=== PATIENT | female | born 1945 | race Caucasian/White ===

== ENCOUNTER 2017-01-01 19:13 | Inpatient (IN) | payer MEDICARE, BC ==
[~2017-01-01] VITALS: Ht 152.4 cm; Wt 55.8 kg
--- NOTE | ~2017-01-01 | DS ---
PATIENT'S NAME: ARYAN AYALA [facility] AGE: 71 Y [address] ROOM: G6322 [place], [place] [address] LOCATION: GPCU ADMIT DATE: 01/01/2017 Discharge Summary DISCHARGE DATE: 01/04/2017 FAMILY PHYSICIAN: Jean Guerrero MD ATTENDING PHYSICIAN: Edyta Lipscomb FINAL DIAGNOSES: 1. Ydufn-ns-mtftzop systolic congestive heart failure. 2. Pleural effusion. 3. Baifg-hx-sfnqzwk kidney disease. 4. Hypertension. 5. Migraine headache. 6. Ejection fraction of 48%. HOSPITAL COURSE: This is a 71-year-old female who was transferred from [place], [place], with a CHF exacerbation, fluid overload, as well as a pleural effusion. Further evaluation of imaging from [place] showed that her pleural effusion was not to the level of intensity that it needed a thoracentesis. So, she was transferred to [facility] for higher level of care and for attempted and improved diuresis of her fluid overload. Please see history and physical dictated by myself. Upon arrival to [facility], the patient was given IV Lasix and underwent an echocardiogram. After her first round of diuresis, her shortness of breath was much improved. On 01/02/2017, she did develop a migraine headache which is within her normal history. She was treated with [place] and Zofran for some associated nausea. We increased her beta florecita and added Aldactone. On 01/03/2017, the patient experienced an acute kidney injury on top of her chronic kidney disease, so her diuretics were held for that day. She was also started on Imitrex to assist with her migraine headache which had yet to completely resolve but had improved. On 01/04/2017, the patient underwent stress testing which showed an ejection fraction of 48%. It also revealed a mild reversible deficit in the mid apical inferior wall as well as a small sized fixed deficit within the distal anterior wall which was likely soft tissue attenuation. Renal evaluation showed an improved renal function, and she already had a planned outpatient appointment in [address] Noam Chowdary, her regular drycleaner. The patient voiced request to go home and states she was feeling much better and she was found to be in stable condition to be discharged. Due to her recent renal dysfunction as well as her recent fluid overload, plans were made for her to keep her appointment with Dr. Chowdary as well as draw a BMP and a proBNP to further evaluate her laboratory improvement to correlate her improvement in physical symptoms. DIAGNOSTICS: Cardiac enzyme evaluation on admission showed a CPK of 52, CK-MB of 1.5, and a troponin I of less than 0.04. She did have a proBNP of 15,900. Lipid evaluation upon admission showed a total cholesterol of 163, PATIENT'S NAME: ARYAN AYALA [facility] AGE: 71 Y [address] ROOM: [address] [address] LOCATION: GPCU ADMIT DATE: 01/01/2017 Discharge Summary DISCHARGE DATE: 01/04/2017 FAMILY PHYSICIAN: Jean Guerrero MD ATTENDING PHYSICIAN: Edyta Lipscomb triglycerides 262, HDL of 38, and LDL 73. She had a TSH of 4.03. Renal evaluation throughout her stay showed an admission renal function of a BUN, creatinine, and GFR of 22, 1.0, and 54 respectively. On 01/03/2017, her BUN, creatinine, and GFR were 29, 1.8, and 28 respectively. Upon discharge, renal function showed a BUN, creatinine, and GFR of 33, 1.2, and 44 respectively. The patient had an echocardiogram on 01/02/2017, which showed a grade 1 diastolic dysfunction as well as mild concentric left ventricular hypertrophy. She had mild mitral regurgitation as well as mild tricuspid regurgitation and mild pulmonary hypertension with an RVSP of 44 mmHg. She also underwent cardiac stress testing on 01/04/2017. Full report is available for review for details. DISCHARGE ORDERS: The patient is discharged to home with a cardiac diet of low fat, low salt, and low cholesterol. She has no activity restrictions. She is to keep her followup appointment with her regular drycleaner Dr. Noam Chowdary in two days in [place]. Once again, she is to have a BMP and a proBNP drawn before that appointment for continued evaluation of her renal and fluid status. She is then to follow up with her primary care provider in 1 week. She is to be given congestive heart failure teaching instructions including monitoring of her oral intake as well as importance of daily weights and reporting any fluctuations to her drycleaner. DISCHARGE MEDICATIONS: 1. Coreg 25 mg p.o. twice daily. 2. Keflex 500 mg p.o. 4 times daily. 3. Pepcid 40 mg p.o. daily at bedtime. 4. Folic acid 1 mg p.o. daily. 5. Levothyroxine 25 mcg p.o. daily. 6. Lisinopril 20 mg p.o. daily. 7. Magnesium oxide 500 mg p.o. daily. 8. Methotrexate 2.5 mg p.o. once a week on Wednesday evenings. 9. Methotrexate 5 mg p.o. once a week on Tuesdays. 10. Singulair 10 mg p.o. daily. 11. Prednisone 20 mg p.o. every 48 hours. 12. Tylenol 650 mg p.o. every 4 hours as needed for pain. 13. Imitrex 50 mg p.o. as needed for headache with a repeat dose in 2 hours if headache not improved. She is not to take more than 200 mg in a 24- hour period. 14. Compazine 10 mg p.o. every 6 to 8 hours as needed for nausea associated with her migraine headache. 15. Lasix 20 mg p.o. daily. DISPOSITION: The patient is discharged to home in stable condition. She is given discharge teaching including her new medications and prescriptions as PATIENT'S NAME: ARYAN AYALA [facility] AGE: 71 Y [address] ROOM: [place] [address] LOCATION: [facility] ADMIT DATE: 01/01/2017 Discharge Summary DISCHARGE DATE: 01/04/2017 FAMILY PHYSICIAN: Jean Guerrero MD ATTENDING PHYSICIAN: Edyta Lipscomb well as activity and diet restrictions and followup appointments. YUDITH TOMAS APRN FOR MD EFRA LENNON/zohaib /[id number] d: 01/08/17 0408 t: 03/10/17 1100, DISCHARGE SUMMARY
--- NOTE | ~2017-01-01 | ESTC ---
Cardiac Perfusion Imaging Demographics Patient Name JAMIE Mohamud Gender Female Patient Number [id number] Race Visit Number [id number] [place] [id number] Room Number G6322 Accession Number [id number] Height 60 inches Date of 1945 Weight 122 pounds Mark Willett Date of study 01/04/2017 Physician Supervising /JUAN RAMON REED Technologist Jeanette Duran Ordering Physician Ruel Ford MD production technician Stress ECG Reading Roscoe Vines APRN Nurse Zane Cedillo Physician flat spring assembler Procedure Type: Nuclear Stress Test:Exercise, Cardiolite Stress Test Procedure Start time: 01/04/2017 07:25 Indications: Heart Failure. Risk Factors The patient risk factors include:treated hypertension, family history of premature CAD and prior heart failure . Conclusions Summary Stress SPECT images reveal a small area of mild decreased isotope uptake involving the distal anterior wall of the left ventricle. There is also a medium sized mild to moderate intensity inferior wall defect. Rest SPECT images reveal a mildly reversible defect in the mid to apical inferior wall and small sized mostly fixed defect in the distal anterior wall. Gated SPECT imaging reveals mild global hypokinesis. The left ventricular ejection fraction was calculated to be 48 % . Impression ECG portion of the stress test is clinically negative for ischemia by diagnostic criteria. Myocardial perfusion imaging is abnormal. images reveal a mildly reversible defect in the mid to apical inferior wall suggestive of mild ischemia and small size mostly fixed fixed defect in the distal anterior wall likely due to attenuation artifact. Gated wall motion is abnormal with LVEF 48%. There are no previous studies for comparison. . Stress Protocols Resting ECG Normal sinus rhythm. Pre-stress physical exam: Patient assessed by Robert CARR prior to testing. Peak HR:125 bpm HR response: Appropriate Predicted HR: 147 bpm BP response: Appropriate % of predicted HR: 85 Reason for termination:Target heart rate ECG Findings No ECG changes suggestive of ischemia. Arrhythmias No rhythm abnormality. Symptoms Shortness of breath. Leg Fatigue Complications Procedure complication: None. Stress Interpretation Walked 4.5 minutes through 2 stages of malcolm protocol. Appropriate hemodynamic response to exercise. No significant ST-T wave changes with exercise. EKG portion is negative for ischemia by diagnostic criteria. The Villalba Treadmill score was 4.5 .This corresponds to a moderate risk stress test. Will correlate with nuclear images. Imaging Results Summed scores - Summed stress score: 6 - Summed rest score: 9 - Summed difference score: -3 Stress ejection Ejection fraction:49 % EDV :96 ml ESV :49 ml Stroke volume :47 ml LV mass :134 gr Imaging Protocols Rest Stress Isotope:Tc99m Sestamibi IV Isotope: Tc99m Sestamibi IV Isotope dose:10 mCi Isotope dose:30.7 mCi Date:01/04/2017 07:00 Date:01/04/2017 08:38 Technique: SPECT Technique: Gated Supine SPECT Supine IV remains in place after procedure. Scan Time:30 minutes post injection Scan Time:15-30 minutes post injection Procedure Medications - Regadenoson (Lexiscan) 0.4 mg IV over 10-15 sec. I.V. 0.4 mg. Medical History Admission Data Admission date: 01/01/2017 Admission Time: 20:23 Hospital Status: Inpatient. Signatures dtt: JUSTINA LEYVA dtd: 01/04/17 0725 Physician Self Edit
--- NOTE | ~2017-01-01 | HP ---
PATIENT'S NAME: ARYAN AYALA [facility] AGE: 71 Y [address] ROOM: [place] [address] LOCATION: [facility] ADMIT DATE: 01/01/2017 History & Physical DISCHARGE DATE: FAMILY PHYSICIAN: PHYSICIAN, UNKNOWN ATTENDING PHYSICIAN: Edyta Lipscomb DATE OF SERVICE: HISTORY OF PRESENT ILLNESS: This is a 71-year-old female with a history of congestive heart failure, who regularly follows with Dr. Noam Chowdary. She presented to the [place] [facility] with complaints of shortness of breath, dyspnea on exertion, and her exam found that she had a pleural effusion that was not responding to metolazone. She also complained of migraine-type headache which was causing nausea. Due to the above diagnostics as well as an elevated proBNP of 15,913, Dr. Lipscomb was notified and plan was made to transfer the patient to [facility] for further evaluation and treatment. At the time of this evaluation, she is sitting at the edge of her bed, continuing to complain of nausea and of migraine-type headache. She has had no relief from her headache with Tylenol at this point and has not had much oral intake due to her nausea. She denies chest pain, palpitations, presyncope, or syncope. She also denies diarrhea or changes in muscle strength. PAST MEDICAL HISTORY: 1. Hypertension. 2. Congestive heart failure, chronic. 3. Migraines. 4. History of breast cancer in 2006. 5. History of melanoma in 2007. PAST SURGICAL HISTORY: 1. Right mastectomy. 2. Hysterectomy. 3. Left patellar fracture repair. 4. Melanoma excision. 5. Removal of bone spurs from her foot. FAMILY HISTORY: The patient's father due to a myocardial infarction at the age of 67. He also had a history of COPD. Her mother has a history of diabetes mellitus as well as heart problems. She has one sister who had a myocardial infarction at the age of 65 as well as a history of breast cancer. She has one brother with a history of leukemia. PATIENT'S NAME: ARYAN AYALA [facility] AGE: 71 Y [address] ROOM: [place] [address] [facility] ADMIT DATE: 01/01/2017 History & Physical DISCHARGE DATE: FAMILY PHYSICIAN: PHYSICIAN, UNKNOWN ATTENDING PHYSICIAN: Edyta Lipscomb SOCIAL HISTORY: The patient denies ever using tobacco. She does admit to alcohol use on 1 day a week and on those days, she will have 1 drink. She denies illicit drug use. HOME MEDICATIONS: 1. Keflex 500 mg p.o. 4 times a day. 2. Pepcid 40 mg p.o. daily in the evening. 3. Folic acid 1 mg p.o. daily. 4. Indocin 50 mg p.o. 3 times daily. 5. Levothyroxine 25 mcg p.o. daily. 6. Lisinopril 20 mg p.o. daily. 7. Magnesium oxide 500 mg p.o. daily. 8. Methotrexate 5 mg p.o. on Wednesday mornings. 9. Methotrexate 2.5 mg p.o. once a week on Wednesday evenings. 10. Zaroxolyn 5 mg p.o. daily. 11. Toprol-XL 25 mg p.o. daily. 12. Singulair 10 mg p.o. daily. 13. Prednisone 20 mg p.o. every other day. MEDICATION ALLERGIES: Sulfa. REVIEW OF SYSTEMS: Pertinent positive review of systems as listed in the HPI. All other review of systems evaluated and negative. LABORATORY DATA AND IMAGING STUDIES: Diagnostics: CMS evaluation shows a sodium of 139, potassium 3.7, BUN of 22, creatinine 1.0, and glucose of 109. Cardiac enzymes show a CPK of 54, CK-MB of 1.5, and troponin I of less than 0.04. CBC evaluation shows a white blood cell count of 6.2, hemoglobin of 10.9, hematocrit of 35.1, and platelets of 397,000. PHYSICAL EXAMINATION: VITAL SIGNS: Temperature 98.3, pulse 71, respirations 17, blood pressure 140/66, and O2 saturation 94% on room air. The patient weighs 55.5 kg. SKIN: [place], warm, and dry. EYES: Sclerae clear. No xanthelasmas. ENT: Oral mucosa is pink and moist. No jugular venous distention or carotid bruits. CHEST: Respirations are even and unlabored. Lung sounds are clear to auscultation to bilateral upper lobes. They are diminished to bilateral lower lobes. HEART: Regular rate and rhythm. Normal S1 and S2. There is a presence of an S4 as well as a 2/6 systolic murmur. PATIENT'S NAME: ARYAN AYALA [facility] AGE: 71 Y [address] ROOM: [place] [address] LOCATION: GPCU ADMIT DATE: 01/01/2017 History & Physical DISCHARGE DATE: FAMILY PHYSICIAN: PHYSICIAN, UNKNOWN ATTENDING PHYSICIAN: Edyta Lipscomb ABDOMEN: Soft and nontender. MUSCULOSKELETAL: Gait is normal. EXTREMITIES: Peripheral pulses palpable. No clubbing or cyanosis noted. Does have 1+ lower extremity edema present. PSYCHIATRIC: Alert and oriented. Mood and affect are appropriate. IMPRESSION AND PLAN: Per Dr. Lipscomb: 1. Acute on chronic congestive heart failure with fluid overload and pleural effusion. She is diuresing well with IV Lasix and her shortness of breath has improved since her admission. Echocardiogram is currently pending and we will evaluate that echocardiogram for full evaluation of ejection fraction as well as looking for wall-motion or valvular abnormalities. 2. Migraine-type headache. We will try a stronger pain medication with [place] and try and treat her nausea associated with it with Zofran. 3. Hypertension. We will continue her home medications. 4. Nausea. Once again, we will try Zofran to fully manage her symptoms. 5. Chronic kidney disease. We will once again fully evaluate her echocardiogram and if her ejection fraction is low, we will plan to proceed with a heart catheterization to fully evaluate her coronary anatomy; and if her ejection fraction is within normal limits, we will plan to proceed with a Lexiscan stress test and then adjust her medications appropriately. Her pleural effusions are not large enough of a concern that a thoracentesis is necessary at this point, but we will continue to monitor, evaluate, and treat as appropriate. Thank you for allowing [facility] to interact in the care of this patient. YUDITH TOMAS APRN FOR MD EFRA LENNON/zohaib /[id number] D: 451 T: 431 HISTORY & PHYSICAL
--- NOTE | ~2017-01-01 | ECHO ---
Transthoracic Echocardiography Report (TTE) Demographics Patient Name ARYAN AYALA Date of Study 01/02/2017 Patient Number [id number] Visit Number [id number] Date of 1945 Room Number G6322 Gender Female Number Age 71 year(s) Referring Ruel Trinh Data Processing Operator Sohail Christensen RVT, Physician Liliana ROBIN RDCS Physician Interpreting Efstratiou Photography Coordinator Physician Gayathri Ford MD Supervising Ordering Efstratiou MD/MLP Physician Gayathri Ford MD Nurse Stress Secretary Administrative Assistant Conclusions Contractility Score Summary At rest the following contractility abnormalities were noted: Hypokinesis of the Mid fely-lateral, the Mid anterior, the Mid fely-septal, the Mid infero-septal, the Mid inferior, the Mid infero-lateral, the Apical inferior, the Apical septal, the Basal infero-septal, the Apical lateral, the Apical anterior, the Basal anterior, the Basal inferior, the Basal fely-lateral and the Apical cap segments. Contractility of all other segments appeared normal. Summary The estimated left ventricular ejection fraction is 30%. Mild concentric left ventricular hypertrophy. Diastolic assessment reveals Grade I diastolic dysfunction. Mild mitral regurgitation by color Doppler with multiple jets. Mild tricuspid regurgitation by color Doppler. There is mild pulmonary hypertension. The pulmonary pressure (RVSP) is 44 mmHg. Procedure Type of Study TTE procedure:2D Echocardiogram. Procedure Date Date: 01/02/2017 Start: 02:00 PM Study Location: Inpatient Portable Technical Quality: Good visualization Indications:CHF. Appropriate Use Criteria: 8 Patient Status: Routine Rhythm: NSR HR: 81 bpm BP: 160/77 mmHg Allergies - No known allergies. M-Mode/2D Measurements LV Diastolic Dimension: 4.68 cm LV Systolic Dimension: 3.33 cm LV Septum Diastolic: 1.23 cm LV PW Diastolic: 1.07 cm AO Root Dimension: 2.3 cm Cardiac Output: 3.28 l/min AV Cusp Separation: 1.9 cm RV Diastolic Dimension: 2.35 cm LA volume: 35 ml LVOT: 2 cm RV Base: 2.47 cm LVOT VTI: 12.9 cm RV Mid: 3.03 cm LV Stroke volume: 40.51 ml TAPSE: 2.87 cm TDI-S': 11.8 cm/s Doppler Measurements AV Peak Velocity: 1.26 m/s MV Peak E-Wave: 0.59 m/s AV Peak Gradient: 6.35 mmHg MV Peak A-Wave: 1.09 m/s AV Mean Gradient: 4 mmHg MV E/A Ratio: 0.54 LVOT Peak Velocity: 0.57 m/s MV P1/2t: 63 msec TR Gradient:38.69 mmHg PV Peak Velocity: 0.77 m/s Estimated RAP:5 mmHg PV Peak Gradient: 2.37 mmHg Estimated RVSP: 44 mmHg Estimated PASP: 43.69 mmHg E' Septal Velocity: 0.04 m/s A' Septal Velocity: 0.1 m/s E' Lateral Velocity: 0.04 m/s A' Lateral Velocity: 0.13 m/s Findings Left Ventricle Mild concentric left ventricular hypertrophy. Diastolic assessment reveals Grade I diastolic dysfunction. Right Ventricle Normal right ventricle structure and function. Left Atrium The left atrium is mildly to moderately dilated. There is no evidence of patent foramen ovale or atrial septal defect by color Doppler. Right Atrium Normal right atrial size. IVC measures .94 cm with inspiratory collapse. Mitral Valve Mild mitral regurgitation by color Doppler with multiple jets. Aortic Valve Normal aortic valve structure and function. There is trivial aortic regurgitation by color Doppler. Tricuspid Valve Mild tricuspid regurgitation by color Doppler. There is mild pulmonary hypertension. The pulmonary pressure (RVSP) is 44 mmHg. Pulmonic Valve Normal pulmonic valve structure and function. Pericardial Effusion No evidence of pericardial effusion. Miscellaneous Visualized portions of the aortic root and ascending aorta appear normal in size. Pleural Effusion Pleural effusion present. Contractility Score LV regional wall motion:(0-Non visualized 1-Normal 2-Hypokinesis 3-Akinesis 4-Dyskinesis 5-Aneurysm) Signature dtt: Edyta Lipscomb dtd: 01/02/17 1400 Physician Self Edit
[2017-01-01] MEDS ORDERED: DELTASONE5 MG PO (21:00)
[2017-01-01] MEDS ORDERED: FOLIC ACID1 MG PO (21:01)
[2017-01-01] MEDS ORDERED: METHOTREXATE2.5 MG PO ×2 (21:03→21:04)
[2017-01-01] MEDS ORDERED: LEVOTHROID (SY25 MCG PO (21:05)
[2017-01-01] MEDS ORDERED: SINGULAIR10 MG PO (21:05)
[2017-01-01] MEDS ORDERED: MAGNESIUM500 MG PO (21:06)
[2017-01-01] MEDS ORDERED: PRINIVIL (ZESTRI5 MG PO (21:07)
[2017-01-01] MEDS ORDERED: PEPCID40 MG PO (21:07)
[2017-01-01] MEDS ORDERED: PRINIVIL (ZESTR20 MG PO (21:08)
[2017-01-01] MEDS ORDERED: ZAROXOLYN5 MG PO (21:09)
[2017-01-01] MEDS ORDERED: TOPROL XL 5050 MG PO (21:09)
[2017-01-01] MEDS ORDERED: KEFLEX500 MG PO (21:10)
[2017-01-01] MEDS ORDERED: INDOCIN50 MG PO (21:10)
[2017-01-02 05:45] LABS: BASOPHIL # 0.1 K/uL (0.0-0.2); BASOPHIL % 0.8 %; EOSINOPHIL # 0.2 K/uL (0.0-0.5); EOSINOPHIL % 2.9 %; HEMATOCRIT 35.1 % (33.0-46.0); HEMOGLOBIN 10.9 g/dL (10.0-15.0); IMMATURE GRANULOCYTE % 0.5 %; LYMPHOCYTE % 16.7 %; MCH 25.5 pg (27.0-34.0); MCHC 31.1 gm/dL (32.0-36.5); MCV 82.2 fl (83.0-98.0); MONOCYTE # 0.6 K/uL (0.0-1.0); MPV 9.2 fl (9.4-12.4); NEUTROPHIL # (ANC) 4.4 K/uL (1.8-7.8); NEUTROPHIL % 70.1 %; NRBC % 0 /100WBC (0-0.00); PLATELET COUNT 397 K/uL (150-450); RBC 4.27 M/uL (3.50-5.50); RDW-CV 14.4 % (11.9-14.6); WBC 6.2 K/uL (4.0-11.0)
[2017-01-02 06:10] LABS: ALBUMIN 2.6 gm/dL (3.5-5.0); ALK PHOS 75 IU/L (33-138); ALT 15 IU/L (12-78); ANION GAP 12.7 (10.0-19.0); AST 14 IU/L (10-40); BLOOD UREA NITROGEN 22 mg/dL (6-24); CALCIUM 7.8 mg/dL (8.5-10.5); CHLORIDE 104 mMol/L (96-110); CO2 26 mMol/L (22-32); CPK 52 IU/L (21-215); ESTIMATED GFR (MDRD EQUATION) 54; POTASSIUM 3.7 mMol/L (3.7-5.1); SODIUM 139 mMol/L (135-145); TOTAL BILIRUBIN 0.4 mg/dL (0.0-1.5); TOTAL PROTEIN 5.2 g/dL (6.0-8.4)
--- NOTE | 2017-01-02 06:57 | NUR ---
Significant Event: A/0X3. RESTED IN BED ALL OF SHIFT. TURNS SELF. AFERBRILE. PATIENT WAS HAVING SOME HIGH BLOOD PRESSURE THROUGHOUT THE SHIFT. SBP 160-180'S. LASIX IVP GIVEN AND STARTED COREG BID. OTHER VITALS STABLE ON RA. IV TO R) AC SL. TYLENOL GIVEN X1 FOR HEADACHE. PATIENT STATES PAIN WAS NOT REALY RELIEVED WITH TYLENOL. TRIED A COOL WASH CLOTH TO FACE. PATIENT IS RESTING COMFORTABLY. VOIDED 2,700 ML. NO BM THIS SHIFT. ECHO THIS AM. Follow up: CONTINUE WITH PLAN OF CARE.
--- NOTE | 2017-01-02 16:21 | NUR ---
Significant event: A&Ox3. HR 70's. Afebrile. On RA. Did have headache this AM, norco added, does give her some relief. Had 1 tab at 1210, did not want a second tab due to nausea. Zofran given with relief at 1256. Echo done today. Increased coreg and added aldactone. Patient had 650 in UOP. With 600 PO. Appetite decreased, has ate 25-50% of meals. SBP 140-160's. Follow Up: Continue current POC
[2017-01-03 04:20] LABS: PROTIME 10.7 SECONDS (9.6-11.1)
[2017-01-03 04:26] LABS: ALBUMIN 2.7 gm/dL (3.5-5.0); CALCIUM 7.9 mg/dL (8.5-10.5); PHOSPHORUS 6.2 mg/dL (2.5-4.9)
[2017-01-03 04:27] LABS: CREATININE 1.8 mg/dL (0.5-1.1)
--- NOTE | 2017-01-03 06:34 | NUR ---
Significant Event: Patient is alert/oriented x3. Vital signs stable. Patient noted to have O2 sats as low as 78% while asleep, O2 applied at 2L and turned down to 1L to keep O2 sats > 90% while asleep. However, her O2 sats are > 90% on room air while awake so she might need a sleep study prior to being discharged. [place] given x1 for headache, with relief along with Zofran. Slept well throughout the night. Follow up: Continue to monitor per plan of care.
[2017-01-03] MEDS ORDERED: IMITREX50 MG PO (12:13)
[2017-01-03] MEDS ORDERED: COMPAZINE10 MG PO (12:15)
--- NOTE | 2017-01-03 16:31 | NUR ---
Significant event: A&OX3. HR 70-80's. SBP 130-140's. On RA. Lungs are clear/diminished, some fine crackles to lower lobes. [place] given x 2 for a headache, with no relief from 1100 dose, patient had emesis due to POSEY, so 1 dose of imitrex was ordered, with significant relief. Holding all diuretics, due to kidney levels, had 350 ml UOP. Patient will have a stress test in AM. Follow Up: NPO at midnight, no caffiene.
[2017-01-04 05:44] LABS: BASOPHIL % 0.5 %; EOSINOPHIL # 0.1 K/uL (0.0-0.5); EOSINOPHIL % 1.7 %; HEMATOCRIT 34.9 % (33.0-46.0); HEMOGLOBIN 10.9 g/dL (10.0-15.0); IMMATURE GRANULOCYTE % 0.4 %; LYMPHOCYTE # 1.9 K/uL (0.8-4.0); LYMPHOCYTE % 25.3 %; MCH 25.8 pg (27.0-34.0); MCHC 31.2 gm/dL (32.0-36.5); MCV 82.5 fl (83.0-98.0); MONOCYTE # 0.7 K/uL (0.0-1.0); MONOCYTE % 8.9 %; MPV 9.2 fl (9.4-12.4); NEUTROPHIL # (ANC) 4.7 K/uL (1.8-7.8); NEUTROPHIL % 63.2 %; NRBC % 0 /100WBC (0-0.00); PLATELET COUNT 442 K/uL (150-450); RBC 4.23 M/uL (3.50-5.50); RDW-CV 14.4 % (11.9-14.6); WBC 7.4 K/uL (4.0-11.0)
[2017-01-04 06:00] LABS: ANION GAP 11.2 (10.0-19.0); CALCIUM 8.2 mg/dL (8.5-10.5); CREATININE 1.2 mg/dL (0.5-1.1); POTASSIUM 4.2 mMol/L (3.7-5.1)
--- NOTE | 2017-01-04 06:43 | NUR ---
Significant Event: Patient is alert/oriented x3. Vital signs stable. On room air with 1L O2 during the night. [place] given x1 last night for headache, with relief. Has denied any headaches since then. Slept well throughout the night. Renal function this AM has improved compared to yesterday. NPO since midnight. Follow up: Stress test this AM.
--- NOTE | 2017-01-04 11:28 | NUR ---
Introduced self and role of care management to patient. She lives in [place] with her . She states that she is normally able to do all her own ADL's. She states that her will be available to assist as needed. She plans on returning home on discharge. She denies any needs at this time. Will continue to follow.
[2017-01-04] MEDS ORDERED: COREG25 MG PO (15:45)
[2017-01-04] MEDS ORDERED: TYLENOL325 MG PO (15:46)
[2017-01-04] MEDS ORDERED: LASIX20 MG PO (15:50)
--- NOTE | 2017-01-04 16:44 | NUR ---
DISMISSAL INSTRUCTIONS & MEDICATIONS, NEW MEDS, HEART FAILURE INSTRUCTIONS GONE OVER WITH PATIENT AND , NO FURTHER QUESTIONS AT THIS TIME. VSS ON ROOM AIR. STRESS TEST THIS AM WAS NEGATIVE. PT. IS A/OX3, GETS UP AD ASHLEY IN ROOM. NO COMPLAINTS ON PAIN THROUGHOUT THE SHIFT, DID 1 TAB OF NORCO AT 1640 BEFORE DISMISSAL FOR COMPLAINTS OF A HEADACHE. ALL PERSONAL BELONGINGS PACKED UP AND SENT WITH PT. IV TO RIGHT ANTICUBITAL WAS REMOVED WITHOUT DIFFICULTY.
[2017-01-08] MEDS ORDERED: PROBENECID-COL1 EACH PO (11:00)
[2017-01-08] MEDS ORDERED: MAGNESIUM OXID500 MG PO (11:06)
[2017-01-08] MEDS ORDERED: GINKGO BILOBA60 M1 PO (11:06)
[2017-01-08] MEDS ORDERED: NORCO 5-325 TA1 EACH PO (11:11)
[2017-01-08] MEDS ORDERED: NITROSTAT0.4 MG SL (11:26)
== END 2017-01-04 16:50 | disposition disaster alternative care site (69) | DRG 291 ==
LOC: GPCU 19:13
PROVIDERS: Student in an Organized Health Care Education/Training Program; ADMIT Internal Medicine Cardiovascular Disease
DX: I13.0 Hypertensive heart and chronic kidney disease with heart failure and stage 1 through stage 4 chronic kidney disease, or unspecified chronic kidney disease (principal); I50.23 Acute on chronic systolic (congestive) heart failure; N17.9 Acute kidney failure, unspecified; N18.9 Chronic kidney disease, unspecified; G43.909 Migraine, unspecified, not intractable, without status migrainosus; Z85.3 Personal history of malignant neoplasm of breast; Z85.820 Personal history of malignant melanoma of skin; Z79.52 Long term (current) use of systemic steroids; Z79.899 Other long term (current) drug therapy
CPT/HCPCS: A9500; J1650; J1940; J2405; J7512; J8610

== ENCOUNTER 2017-01-11 07:29 | Outpatient (CLI) | payer MEDICARE, BC ==
--- NOTE | ~2017-01-11 | CATH ---
Cardiac Diagnostic Report Demographics Patient Name JAMIE Mohamud Gender Female Date of 1945 Age 71 year(s) Patient Number [id number] Date of Study 01/11/2017 Visit Number [id number] Room Number G63[address] [place] [id number] Ht 152.4 cm Wt 55.5 kg Referring Cesar Pena Ashly Primary Physician Physician MD Performing Ricarda Santacruz MD Secondary Physician Physician Diagnostic Ricarda Santacruz MD Assisting Physician Physician Interventional Physician Examiner Rating Clerk Physician Findings and Conclusions Diagnostic Findings and Conclusion Non-obstructive CAD. Dilated cardiomyopathy. Mild to moderate pulmonary hypertension. Diagnostic Recommendations Routine post angioseal. Procedure Description The patient was brought to the diagnostic cardiac catheterization-EP laboratory in the fasting, non-sedated state. Informed consent was obtained in the written and verbal form after the risks and benefits were explained. The patient had no further questions and agreed to proceed. The planned puncture-incision site(s) were shaved and prepped with ChloraPrep and draped in the usual sterile manner. Supplemental oxygen and pain control medications were delivered by a registered nurse under physician guidance. Surface ECG rhythm, blood pressure measurement, and pulse oximetry were monitored throughout the procedure. Arterial access. The access site was infiltrated with lidocaine. The vessel was entered with the Seldinger technique. A sheath was advanced into the vessel and used for catheter placement. Venous access. The access site was infiltrated with lidocaine. The vessel was entered with the Seldinger technique. A sheath was advanced into the vessel and used for catheter placement. Selective left coronary angiography. A catheter was advanced into the left coronary vessel ostium under Fluoroscopic guidance. Contrast was injected by hand. Images were obtained in multiple projections. Selective right coronary angiography. A catheter was advanced into the right coronary vessel ostium under fluoroscopic guidance. Contrast was injected by hand. Images were obtained in multiple projections. Left heart catheterization with ventriculography. A catheter was advanced across the aortic valve to the left ventricle under fluoroscopic guidance. Resting hemodynamics were obtained. With the catheter at the left ventricular apex, contrast was injected. Images were obtained in BARRETO projections. Post-ventriculography LV pressure was obtained. The catheter was gradually withdrawn into the aorta with continuous pressure recording. Right heart catheterization. A [place] Blake catheter was successfully advanced to the right atrium, right ventricle, pulmonary artery, and pulmonary artery wedge position under fluoroscopic guidance. Resting hemodynamics were obtained. Measurements included pressures, arterial and venous oxygen saturation samples, and cardiac output. The [place] was removed without difficulty. Arterial artery hemostasis was achieved. The patient was transferred to a regular nursing floor via cart accompanied by a nurse. The patient left the laboratory in stable condition. Diagnostic Cath Status: Elective Procedure Procedure Type Diagnostic procedure:Ventriculogram:, Left, Angiography:, Right and Left Heart Cath, Coronary Angios Indications: Abnormal Stress Test and Shortness of breath. The procedure was explained in detail to the patient. Risks, complications and alternative treatments were reviewed. Written consent was obtained. Medications Reviewed with Patient prior to Procedure. Angiographic Findings Dominance: Right Cardiac Arteries and Lesion Findings LMCA: Large, normal. LAD: Calcified proximal, medium caliber. Normal. Diag 1 small, ok. LCx: Medium, non-dominant. Normal. OM medium, normal. RCA: Large, dominant. Normal. PL medium, normal. PDA medium, normal. Procedure Data Procedure Date Date: 01/11/2017Start: 10:01 AMEnd: 10:47 AM Entry Locations - Retrograde Percutaneous access was performed through the Right Femoral vein. A 7 Fr sheath was inserted. Hemostasis was successfully obtained using Manual Compression. Closure Comments: Pressure held by Kyara Varghese . - Antegrade Percutaneous access was performed through the Right Femoral artery (Primary location). A 6 Fr sheath was inserted. Hemostasis was successfully obtained using Angio-Seal STS PLUS ([facility]). Closure Comments: Deployed by Kyara Varghese . Procedure Medications Order and Administration + + +-------+------+ !Time !Medication !Dosage !Route ! + + +-------+------+ !01/11/2017 10:04 AM !Fentanyl !25 mcg !I.V. ! + + +-------+------+ !01/11/2017 10:29 AM !Fentanyl !25 mcg !I.V. ! + + +-------+------+ Devices Used - A6 Fr. BS Angled Pigtail Diag. Catheterwas used for:Left ventriculography. - A6 Fr. BS JL 4 Diag. Catheterwas used for:Left coronary angiography. - A6 Fr. BS JR 4 Diag. Catheterwas used for:Right coronary angiography. Contrast Material - Isovue 51119 ml Fluoroscopy Time: Diagnostic: 4:30 minutes. Total: 4:30 minutes. Fluoroscopy Dose: Diagnostic: 261 mGy. Total: 261 mGy. Estimated Blood Loss: 4 ml. Medical History Performed Procedures and Imaging Results - Stress testing with SPECT MPIwas performed on 01/04/2017. Results were: Positive. Allergies - Sulfa. Risk Factors The patient risk factors include:treated hypertension, family history of premature CAD, last creatinine: 0.9 mg/dl, creatinine clearance: 48.78 ml/min and prior heart failure . Admission Data Admission Date: 01/11/2017 Admission Time: 07:29 AM Admit Source: Other Insurance Payors: Medicare. Admission Medications + +------+------+ + + + + !Medication !Dosage!Times !Last !Last !Administered !Comments ! ! ! !Per !Delivery !Delivery ! ! ! ! ! !Day !Date !Time ! ! ! + +------+------+ + + + + !RUSSEL ! ! ! ! ! ! ! !Inhibitor ! ! ! ! ! ! ! !(any) ! ! ! ! ! ! ! + +------+------+ + + + + !Beta Kady! ! ! ! ! ! ! !(any) ! ! ! ! ! ! ! + +------+------+ + + + + !Aspirin ! ! ! ! ! ! ! !(any) ! ! ! ! ! ! ! + +------+------+ + + + + Clinical Evaluation Leading to Procedure - There were no anginal symptoms. - The patient has been in a state of heart failure within the past two weeks. - The patient's heart failure status was assessed as NYHA Class II. 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 [facility] Ventriculography Findings Global hypokinesis. LV EF 35-40%. LV function assessed as:Abnormal. Ejection Fraction - 01/11/2017 - Method: LV gram. EF%: 40. LVA Segment Contractility 1 - Normal 3 - Mild 5 - Severe 7 - Dyskinesis hypokinesis hypokinesis 2 - 4 - Moderate 6 - Akinesis 8 - Aneurysm Hypokinesis hypokinesis Hemodynamics Condition: Rest O2 Consumption: Estimated: 139.33Heart Rate: 72 bpm Oxygen Saturation +--------+-----+----+ +----+ + !Location!pCO2 !pO2 !% Saturation !Hgb !O2 Content ! +--------+-----+----+ +----+ + !SVC ! ! !66.4 !10.9! ! +--------+-----+----+ +----+ + !IVC ! ! !69.9 ! ! ! +--------+-----+----+ +----+ + !RA ! ! !61.1 ! ! ! +--------+-----+----+ +----+ + !FA ! ! !95.3 ! ! ! +--------+-----+----+ +----+ + !PCW ! ! !62.1 ! ! ! +--------+-----+----+ +----+ + Pressures (mmHg) +-----+ + !Site !Pressure ! +-----+ + !RA !8/5 (3) ! +-----+ + !RV !44/1 ,5 ! +-----+ + !PCW ! (11) ! +-----+ + !PA !40/17 (26) ! +-----+ + !LV !170/6 ,17 ! +-----+ + !PCW !17/15 (13) ! +-----+ + !LV !173/7 ,19 ! +-----+ + !PCW !19/18 (16) ! +-----+ + !LV !174/7 ,17 ! +-----+ + !PCW !18/16 (13) ! +-----+ + !LV !170/6 ,18 ! +-----+ + !LV !170/4 ,19 ! +-----+ + !AO !176/76 (117) ! +-----+ + !LV !171/4 ,18 ! +-----+ + !AO !175/ (116) ! +-----+ + !AO !174/ (118) ! +-----+ + Cardiac Output + + +-----+ !Time !Cardiac Output (l/min) !Use ! + + +-----+ !01/11/2017 10:25 AM !3.84 !True ! + + +-----+ !01/11/2017 10:26 AM !4 !True ! + + +-----+ !01/11/2017 10:27 AM !3.85 !True ! + + +-----+ Cardiac Output +-------+ + + + !Method !CO (l/min) !CI (l/min/m2) !SV (ml) ! +-------+ + + + !Myles !2.75 !1.8 !38.1 ! +-------+ + + + !Thermal!3.468560 !2.6 !49.96 ! +-------+ + + + Valve Gradients and Areas + +--------+--------+--------+---------+ + + !Valve !Peak !Mean !Area !Index !Flow !Source ! + +--------+--------+--------+---------+ + + !Aortic !0 !0 ! ! !414.16 !Myles ! + +--------+--------+--------+---------+ + + !Aortic !0 !0 ! ! !586.85 !Thermal ! + +--------+--------+--------+---------+ + + Shunts Oxygen Values O2 Capacity 148.24 O2 Consumption 139.33 Flows (l/min) Qs 3.35 Vascular Resistance (dynes x sec x cm-5) + +-----+-----+----+----+---------+-------+ !CO method !TSVR !SVR !TPVR!PVR !TPVR/TSVR!PVR/SVR! + +-----+-----+----+----+---------+-------+ !Myles !43 !41.8 !9.28!4.57!0.22 !0.11 ! + +-----+-----+----+----+---------+-------+ !Thermal !30.35!29.5 !6.55!3.22!0.22 !0.11 ! + +-----+-----+----+----+---------+-------+ !Qp or Qs !35.3 !34.31! ! ! ! ! + +-----+-----+----+----+---------+-------+ Discharge Data Discharge Date: 01/11/2017 Hospital Status: Outpatient Signatures dtt: Noam Chowdary (cardio) dtd: 01/11/17 1001 Physician Self Edit
[~2017-01-11 07:29] MED LIST: COMPAZINE10 MG PO; COREG25 MG PO; DELTASONE5 MG PO; FOLIC ACID1 MG PO; GINKGO BILOBA60 M1 PO; IMITREX50 MG PO; INDOCIN50 MG PO; KEFLEX500 MG PO; LASIX20 MG PO; LEVOTHROID (SY25 MCG PO; MAGNESIUM OXID500 MG PO; MAGNESIUM500 MG PO; METHOTREXATE2.5 MG PO; NITROSTAT0.4 MG SL; NORCO 5-325 TA1 EACH PO; PEPCID40 MG PO; PRINIVIL (ZESTR20 MG PO; PRINIVIL (ZESTRI5 MG PO; PROBENECID-COL1 EACH PO; SINGULAIR10 MG PO; TOPROL XL 5050 MG PO; TYLENOL325 MG PO; ZAROXOLYN5 MG PO
[2017-01-11] MEDS ORDERED: PRINIVIL (ZESTR20 MG PO (13:14)
== END 2017-01-11 14:15 | disposition disaster alternative care site (69) ==
LOC: GCAT 07:29 → GNTU 07:29 → GPCU 07:29 → GPOC 08:00 → GCAT 14:15
PROC: B2111ZZ Fluoroscopy of Multiple Coronary Arteries using Low Osmolar Contrast (ICD-10-PCS; principal; 2017-01-11)
PROC: 4A023N8 Measurement of Cardiac Sampling and Pressure, Bilateral, Percutaneous Approach (ICD-10-PCS; principal; 2017-01-11)
PROC: B2151ZZ Fluoroscopy of Left Heart using Low Osmolar Contrast (ICD-10-PCS; principal; 2017-01-11)
DX: I42.0 Dilated cardiomyopathy (principal); I27.2 Other secondary pulmonary hypertension; I10 Essential (primary) hypertension; G43.909 Migraine, unspecified, not intractable, without status migrainosus; L08.9 Local infection of the skin and subcutaneous tissue, unspecified; E03.9 Hypothyroidism, unspecified; Z82.49 Family history of ischemic heart disease and other diseases of the circulatory system; Z85.3 Personal history of malignant neoplasm of breast; Z85.820 Personal history of malignant melanoma of skin; Z79.52 Long term (current) use of systemic steroids; Z79.899 Other long term (current) drug therapy; Z90.10 Acquired absence of unspecified breast and nipple
CPT/HCPCS: C1760; J1200; J1644; J2001; J2250; J3010